=== PATIENT | female | born 1995 ===

== ENCOUNTER 2018-04-01 08:18 | Emergency (ER) | payer OTHER ==
[~2018-04-01] VITALS: Ht 170.2 cm; Wt 72.1 kg
[~2018-04-01 08:18] MED LIST: ALLEGRA30 MG PO; ATIVAN0.5 MG; CLARITIN-D 121 EACH PO; OSEL75CA PO; PAXIL10 MG/5 ML PO; PEPCID20 MG PO
== END 2018-04-01 22:12 | disposition home or self-care (01) ==
LOC: ER 08:18
DX: R50.9 Fever, unspecified (principal)